=== PATIENT | female | born 1965 | race Caucasian/White ===

== ENCOUNTER → 2017-09-20 | Outpatient (CLI) | payer OTHER ==
[~2017-09-20] MED LIST: AMLO5TAB2 PO; FLUT1SPR5 EACH NARE; LEVO5TAB8 PO; LOSA50TA PO; TRIA37.5 PO
[2017-09-20 14:10] LABS: AUTOMATED NEUTROPHIL # 3.7 TH/MM3 (1.8-7.7); BASOPHIL % 0.6 % (0.0-2.0); EOSINOPHIL # 0.1 TH/MM3 (0-0.4); EOSINOPHIL % 1.3 % (0.0-4.0); HEMATOCRIT 39.2 % (35.0-46.0); HEMO FLAGS DIFF FINAL; MEAN CELL VOLUME 89.5 FL (80.0-100.0); MEAN CORPUSCULAR HEMOGLOBIN 31.6 PG (27.0-34.0); MEAN CORPUSCULAR HGB CONC 35.3 % (32.0-36.0); MONO % 7.6 % (0.0-8.0); NEUT % 58.5 % (16.0-70.0); PLATELET COUNT 298 TH/MM3 (150-450); RED BLOOD COUNT 4.37 MIL/MM3 (4.00-5.30); RED CELL DISTRIBUTION WIDTH 13.1 % (11.6-17.2); WHITE BLOOD COUNT 6.3 TH/MM3 (4.0-11.0)
[2017-09-20 14:12] LABS: BLOOD, URINE NEG (NEG); COMMENT (UR) CULT NOT INDICATED; CULTURE IF INDICATED CULT NOT INDICATED; GLUCOSE,URINE NEG (NEG); KETONE, URINE NEG (NEG); NITRITE,URINE NEG (NEG); URINE COLOR LIGHT-YELLOW (YELLW/STRAW)
[2017-09-20 14:45] LABS: BETA HCG QUANT 1 MIU/ML (0-5)
--- NOTE | 2017-09-21 10:02 | EKG ---
Date Performed: 09/20/2017 Time Performed: 13:01:10 PTAGE: 51 years EKG: Sinus rhythm LOW QRS VOLTAGE IN PRECORDIAL LEADS NONSPECIFIC T-WAVE ABNORMALITY BORDERLINE ECG NO PREVIOUS TRACING DOCTOR: Ramon Adkins Interpretating Date/Time 09/21/2017 10:00:50
== END ==
LOC: CPRE 12:41
PROVIDERS: ATTEND Obstetrics & Gynecology
DX: Z01.812 Encounter for preprocedural laboratory examination (principal); Z01.810 Encounter for preprocedural cardiovascular examination; N95.0 Postmenopausal bleeding; D25.9 Leiomyoma of uterus, unspecified; N94.6 Dysmenorrhea, unspecified; R94.31 Abnormal electrocardiogram [ECG] [EKG]
CPT/HCPCS: 36415; 81001; 84702; 85025; 93005

== ENCOUNTER 2017-09-21 12:19 | Observation (INO) | payer OTHER ==
--- NOTE | 2017-09-20 13:09 | MH ---
cc: OBI FLETCHER DATE OF ADMISSION: 09/21/2017 ADMITTING DIAGNOSIS Postmenopausal bleeding secondary to multiple fibroids, refractory to medical therapy. 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 She has had increasing menstrual pain and menstrual bleeding and a vaginal ultrasound performed on 09/12/2017 showed multiple fibroids. The right ovary is normal; the left could not be seen. Endometrial biopsy was performed on 09/15/2017, benign. She is now admitted for hysterectomy. PAST MEDICAL HISTORY PREVIOUS SURGERY She had a laparoscopic cholecystectomy in 1992. ALLERGIES PENICILLIN. TRANSFUSIONS None. OB HISTORY Two vaginal deliveries. SOCIAL HISTORY . Works at [employer]. Alcohol, tobacco and drugs are none. FAMILY HISTORY Noncontributory. PHYSICAL EXAMINATION GENERAL: A well-nourished, well-developed white female. VITAL SIGNS: Stable. HEENT: Exam is normal. CHEST: Clear. HEART: Regular rate. BREASTS: Symmetrical. ABDOMEN: Benign. PELVIC EXAM: Normal external genitalia and BUS. Vagina is normal. Cervix is normal. The uterus is about 14 weeks' size. Adnexa nonpalpable. ASSESSMENT As above. PLAN She is now admitted laparoscopy, planned LASH, BSO, possible ARTEM-BSO. While in the office explained the procedures, the risks, benefits and complications. The patient would like to proceed. MD JOEL Spencer/GLORY /12:40 PM /12:59 PM
[~2017-09-21] VITALS: Ht 175.3 cm; Wt 96.9 kg
[~2017-09-21 12:19] MED LIST changes: -FLUT1SPR5 EACH NARE
[2017-09-21] MEDS ORDERED: LACTATED RINGER'S 1000 ML IV PRN (13:00)
[2017-09-21] MEDS ORDERED: CHLORHEXIDINE GLUCONATE 2 % 1 PACK (2 CLOTHS) TOPICAL PRN (13:00)
[2017-09-21] MEDS ORDERED: POVIDONE IODINE 5% (ANTISEPSIS KIT) 4 APPLICATIONS EACH NARE PRN (13:00)
[2017-09-21] MEDS ORDERED: ACETAMINOPHEN 1000 MG/100 ML 100 ML IV SCH (13:00)
[2017-09-21] MEDS ORDERED: SODIUM CHLORID 0.9% 500 ML IV PRN (13:00)
[2017-09-21] MEDS ORDERED: METOPROLOL TARTRATE 25 MG TAB PO PRN (13:00)
[2017-09-21] MEDS ORDERED: CLINDAMYCIN INJ 900 MG in SODIUM CHLORIDE 0.9% INJ 50 ML IV SCH (13:00)
[2017-09-21] MEDS ORDERED: SODIUM CHLORIDE 0.9% INJ 50 ML ONE (13:16)
[2017-09-21] MEDS ORDERED: FLUT1SPR5 EACH NARE (13:20)
[2017-09-21] MEDS ORDERED: BUPIVACAINE LIPOSOME PF 1.3% 20 ML VIAL ONE (15:24)
[2017-09-21] MEDS ORDERED: SODIUM CHLORIDE 0.9% 20 ML VIAL ONE (16:19)
[2017-09-21] MEDS ORDERED: PROMETHAZINE INJ 25 MG/ML VIAL IM PRN (17:45)
[2017-09-21] MEDS ORDERED: SODIUM CHLORIDE 0.9% FLUSH 5 ML FLUSH FLUSH PRN (17:45)
[2017-09-21] MEDS ORDERED: ZOLPIDEM TARTRATE 5 MG TAB PO PRN (17:45)
[2017-09-21] MEDS ORDERED: diphenhydrAMINE HCL 25 MG CAP PO PRN (17:45)
[2017-09-21] MEDS ORDERED: HYDROmorphone HCL PF 1 MG/ML VIAL IV PUSH PRN (17:45)
[2017-09-21] MEDS ORDERED: ONDANSETRON HCL 4 MG/2 ML VIAL IV PUSH PRN (17:45)
[2017-09-21] MEDS: D5-1/2 NS + KCL 20 MEQ INJ 1,000 ML IV SCH (18:00)
[2017-09-21] MEDS: ACETAMINOPHEN 1000 MG/100 ML VIAL IV SCH (18:00)
[2017-09-21] MEDS ORDERED: *morphine SULFATE 8 MG/ML PERIprocedure ONLY ONE ×3 (18:15→18:51)
[2017-09-21] MEDS ORDERED: *MEPERIDINE 25 MG INJ VIAL PERIprocedural Use ONLY ONE (18:28)
[2017-09-21] MEDS: KETOROLAC TROMETHAMINE 30 MG/ML (IVP) VIAL IVP SCH (18:40)
[2017-09-21 19:30] VITALS: BP 125/68; PULSE 82; RESP 20; TEMP 97.9; O2SAT 97
[2017-09-21] MEDS: SODIUM CHLORIDE 0.9% FLUSH 5 ML FLUSH FLUSH SCH (21:00)
[2017-09-21] MEDS: DOCUSATE SODIUM 100 MG CAP PO SCH (21:43)
[2017-09-21 21:57] LABS: REVIEW FLAG FINAL
--- NOTE | 2017-09-21 23:01 | MP ---
cc: OBI FLETCHER MD DATE OF SURGERY 09/21/2017 PREOPERATIVE DIAGNOSIS bleeding with enlarging fibroids. POSTOP DIAGNOSIS bleeding with enlarging fibroids. PROCEDURE LASH/BSO. ANESTHESIA General ET. SURGEON Obi Fletcher MD. REPORT PROGRAMMER ARSALAN Quiroga. ESTIMATED BLOOD LOSS 100 cc. FLUID 800 cc crystalloid. OBJECTIVE FINDINGS Following induction of adequate general endotracheal anesthesia the patient was prepped and draped supine on the operating table, dorsal lithotomy position in sterile fashion with the bladder being drained via Blanchard catheterization. Abdomen was opened through a 3 cm curving infraumbilical incision using knife to cut down through skin to the fascia. Fascia opened transversely, stripped from the muscles. Rectus muscle split in the midline and the peritoneal sharp ___. The palpation was normal. The GelPort was placed. The laparoscope inserted. A 5 port was placed left lower quadrant and an AirSeal right lower quadrant. The uterus was about 12 weeks' size with multiple fibroids, normal tubes, normal ovaries, normal cul-de-sacs, appendix was normal. There were a few __ adhesions superior to the GelPort from the previous cholecystectomy. Working first on the left my scalpel was used to take the left ovarian vessels, left round ligament, left broad ligament, left-side of the bladder flap, uterine vessels and same on the right. The harmonic scalpel was now used to amputate the fundus from the cervix. A pouch was inserted and the uterus, tubes, ovaries extracted in the pouch through the GelPort site. Irrigation now performed. One area of bleeding on the cervix, right side, was controlled with the harmonic scalpel. Low pressure tests were done in the neutral to ____ position. There was no bleeding. The ureters were inspected. Good peristalsis bilateral. The operative site was now coated with Evicel. The GelPort removed and the peritoneum sutured with a running 2-0 Vicryl, the fascia with a running locking stitch of 0 Vicryl corner to midline tied, subcu running 3-0 Vicryl and skin with running subcuticular 3-0 Monocryl. Scope was now reinserted through the lower port sites and used to check the GelPort site was well closed, no entrapment. Pelvis was inspected, there was no bleeding. Scope was removed, gas allowed to escape. Small ports were removed, sutured with 3-0 Monocryl subcuticular. Sterile Dermabond applied. All counts were correct and the patient was awakened and taken to Recovery in good condition. MD JOEL Spencer/JONATHAN /5:48 PM /10:41 PM
[2017-09-22] MEDS: D5-1/2 NS + KCL 20 MEQ INJ 1,000 ML IV SCH (00:12)
[2017-09-22] MEDS: KETOROLAC TROMETHAMINE 30 MG/ML (IVP) VIAL IVP SCH ×2 (00:12→06:08)
[2017-09-22 00:15] VITALS: BP 121/71; PULSE 80; RESP 18; TEMP 97.5; O2SAT 98
[2017-09-22] MEDS: ACETAMINOPHEN 1000 MG/100 ML VIAL IV SCH ×2 (01:34→09:55)
[2017-09-22 03:55] VITALS: BP 106/66; PULSE 64; RESP 16; TEMP 97.6; O2SAT 99
[2017-09-22 06:01] LABS: AUTOMATED NEUTROPHIL # 6.9 TH/MM3 (1.8-7.7); BASOPHIL % 0.3 % (0.0-2.0); EOSINOPHIL % 0.2 % (0.0-4.0); HEMATOCRIT 37.1 % (35.0-46.0); HEMO FLAGS DIFF FINAL; LYMPHOCYTE # 1.1 TH/MM3 (1.0-4.8); MEAN CELL VOLUME 89.7 FL (80.0-100.0); MEAN CORPUSCULAR HGB CONC 35.7 % (32.0-36.0); MONO % 8.6 % (0.0-8.0); NEUT % 77.9 % (16.0-70.0); PLATELET COUNT 255 TH/MM3 (150-450); RED BLOOD COUNT 4.14 MIL/MM3 (4.00-5.30); RED CELL DISTRIBUTION WIDTH 13.2 % (11.6-17.2); WHITE BLOOD COUNT 8.8 TH/MM3 (4.0-11.0)
[2017-09-22 06:24] LABS: BICARBONATE 29.1 MEQ/L (21.0-32.0); POTASSIUM 3.7 MEQ/L (3.5-5.1)
[2017-09-22 09:20] VITALS: BP 139/76; PULSE 75; RESP 16; TEMP 97.8; O2SAT 98
[2017-09-22] MEDS: DOCUSATE SODIUM 100 MG CAP PO SCH (09:55)
[2017-09-22] MEDS: SODIUM CHLORIDE 0.9% FLUSH 5 ML FLUSH FLUSH SCH (10:00)
== END 2017-09-22 13:33 | disposition home or self-care (01) ==
LOC: HSDC 12:19 → HSDI 17:40 → H1EA 19:37
PROVIDERS: ADMIT Obstetrics & Gynecology; ATTEND Obstetrics & Gynecology
DX: O72.1 Other immediate postpartum hemorrhage (principal); D25.9 Leiomyoma of uterus, unspecified; N80.0 Endometriosis of uterus; D27.1 Benign neoplasm of left ovary
CPT/HCPCS: 80048; 85014; 85018; 85025; 88307; 94150; 96361; 96374; 96375; 96376; C9290; G0378; J0131; J1170; J1885; J2175; J2270; J3480; J7120